=== PATIENT | male | born 1970 | race Caucasian/White ===

== ENCOUNTER 2019-06-01 13:56 | Emergency (ER) | payer BC ==
--- NOTE | 2019-06-01 15:34 | UC ---
Knee Pain HPI - HPI Summary HPI Summary: 48 yo male presents with RIGHT knee pain. 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 Later that night it was swollen and red. He took ibuprofen with little relief. Had difficulty sleeping due to pain. Today his right knee is more red, swollen, and painful. He is ambulating without assistance. Pain is worse with flexion. [place] some "flu like" this morning with body aches and fatigue. Denies fever, chills. No OTC meds today. - History of Current Complaint Chief Complaint: UCLowerExtremity Stated Complaint: RT KNEE PAIN Time Seen by Provider: 06/01/19 14:47 Hx Obtained From: Patient Onset/Duration: Sudden Onset Severity Initially: Moderate Severity Currently: Severe Pain Intensity: 10 Pain Scale Used: 0-10 Numeric - Allergies/Home Medications Allergies/Adverse Reactions: Allergies Allergy/AdvReac Type Severity Reaction Status Date / Time No Known Allergies Allergy Verified 06/01/19 14:45 Home Medications: Home Medications NK [No Home Medications Reported] 06/01/19 [History Confirmed 06/01/19] PMH/Surg Hx/FS Hx/Imm Hx - Additional Past Medical History Additional PMH: None - Surgical History Surgical History: None - Family History Known Family History: Positive: Non-Contributory - Social History Occupation: Employed Full-time Lives: With Family Alcohol Use: Occasionally Substance Use Type: None Smoking Status (MU): Former Smoker Review of Systems All Other Systems Reviewed And Are Negative: Yes Constitutional: Positive: Negative Respiratory: Positive: Negative Cardiovascular: Positive: Negative Neurovascular: Positive: Negative Musculoskeletal: Positive: Other: - Right knee pain Neurological: Positive: Negative Psychological: Positive: Negative Physical Exam - Summary Physical Exam Summary: GENERAL: NAD. WDWN. No pain distress. SKIN: See MSK CHEST: No accessory muscle use. Breathing comfortably and in no distress. CV: Pulses intact popliteal, PT, and DP. Cap refill <2seconds MSK: RIGHT KNEE: Moderate edema at pre-patella with mild erythema and warmth. TTP. No open wound. Keeps leg in ~25deg flexion. Full extension, but pain with flexion to 90deg. NEURO: Alert. Sensations intact and symmetric B/L LEs PSYCH: Age appropriate behavior. Triage Information Reviewed: Yes Vital Signs: Initial Vital Signs Temp 97.9 F 06/01/19 14:40 Pulse 100 06/01/19 14:40 Resp 21 06/01/19 14:40 BP 131/72 06/01/19 14:40 Pulse Ox 100 06/01/19 14:40 Vital Signs Reviewed: Yes Knee Pain Course/Dx - Course Course Of Treatment: XR: IMPRESSION: SOFT TISSUE SWELLING. NO ACUTE OSSEOUS INJURY. IF SYMPTOMS PERSIST, RECOMMEND REPEAT IMAGING. Discussed results with pt. Suspect bursitis vs septic bursitis. I called Orthopedics and spoke to Dr. Garrett's LEO Blake and he will see pt in the office right now. Discussed with pt and he will go there now for further evaluation. - Differential Dx/Diagnosis Provider Diagnosis: Prepatellar bursitis, right knee Discharge - Sign-Out/Discharge Documenting (check all that apply): Patient Departure All imaging exams completed and their final reports reviewed: Yes - Discharge Plan Condition: Stable Disposition: HOME Patient Education Materials: Knee Bursitis (ED) Referrals: No Primary Care Phys,NOPCP [Primary Care Provider] - Saul Garrett MD [Medical Doctor] - 1 Day Additional Instructions: Dr. Garrett of Orthopedics will see you now - Billing Disposition and Condition Condition: STABLE Disposition: Home - Attestation Statements Provider Attestation: I was available for consult. This patient was seen by the [facility]. The patient was not presented to, seen by, or examined by me. -Aurelio
[2019-06-01] MEDS ORDERED: Ketorolac *IM* INJ* 60 MG/2 ML VIAL IM ONE (15:38)
== END 2019-06-01 15:55 | disposition home or self-care (01) ==
LOC: UCEAST 13:56
DX: M70.41 Prepatellar bursitis, right knee (principal); Z87.891 Personal history of nicotine dependence
CPT/HCPCS: 96372; 99201; G0463; J1885